=== PATIENT | female | born 1990 | race Caucasian/White ===

== ENCOUNTER 2017-05-01 18:08 | Emergency (ER) | payer OTHER ==
[~2017-05-01] VITALS: Ht 152.4 cm; Wt 60.0 kg
[~2017-05-01 18:08] MED LIST: PREN1TAB49 PO
[2017-05-01 18:18] VITALS: Ht 152.4 cm; Wt 60.0 kg
[2017-05-01] MEDS ORDERED: KETOROLAC 60 MG INJ IM STA (20:52)
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
[2017-05-01] MEDS ORDERED: IBUP-1542 PO (22:41)
[2017-05-01] MEDS ORDERED: CYCL-319 PO (22:42)
== END 2017-05-01 23:05 | disposition home or self-care (01) ==
LOC: FTE 18:08
DX: S80.01XA Contusion of right knee, initial encounter (principal); V43.63XA Car passenger injured in collision with pick-up truck in traffic accident, initial encounter
CPT/HCPCS: 72040; 73562; 73590; 96372; J1885; Z7502